=== PATIENT | female | born 1990 | race African-American/Black ===

== ENCOUNTER 2018-05-10 22:40 | Emergency (ER) | payer MEDICAID ==
[~2018-05-10] VITALS: Ht 152.4 cm; Wt 53.5 kg
[2018-05-10 22:40] VITALS: BP 101/62
[2018-05-11] MEDS ORDERED: methylPREDNISolone SOD SUCC 125 MG/2 ML VL IM ONE
[2018-05-11] MEDS ORDERED: KETOROLAC TROMETH 60MG/2ML VIAL IM ONE
== END 2018-05-11 01:20 | disposition home or self-care (01) ==
LOC: ER 22:49
DX: S52.201A Unspecified fracture of shaft of right ulna, initial encounter for closed fracture (principal); F17.210 Nicotine dependence, cigarettes, uncomplicated; F12.90 Cannabis use, unspecified, uncomplicated; Y09 Assault by unspecified means; Y93.89 Activity, other specified; Y99.8 Other external cause status; Y92.89 Other specified places as the place of occurrence of the external cause
CPT/HCPCS: 29125; 73090; 73100; 96372; 99283; J1885; J2930